=== PATIENT | male | born 1945 | race Two or more races ===

== ENCOUNTER 2024-09-03 06:41 | Day surgery (SDC) | payer OTHER ==
[2024-08-20 11:21] VITALS: BP 149/85
[2024-08-20 11:35] LABS: URINE APPEARANCE Clear; URINE BILIRRUBIN Negative (NEGATIVE); URINE BLOOD Negative; URINE COLOR Yellow; URINE GLUCOSE Negative (NEGATIVE); URINE KETONE Negative (NEGATIVE); URINE LEUKOCYTE Negative; URINE NITRATE Negative; URINE PROTEIN Negative (NEGATIVE)
[2024-08-20 11:39] LABS: URINE BACTERIA 9.7 uL (0.0-1933); URINE EPITHELIAL CELLS 3.6 uL (0.0-38.8); URINE RBC 9.1 uL (0.0-20.8); URINE WBC 9.7 uL (0.0-23.2)
[2024-08-20 11:56] LABS: HEMATOCRIT 36.5 % (39.0-48.0); HEMOGLOBIN 12.4 g/dL (13-16.00); MEAN CELL VOLUME 90.5 fL (80.0-100.00); MEAN CORPUSCULAR HEMOGLOBIN 30.8 pg (27.00-32.0); PLATELET COUNT 184 K/uL (150-450); RED BLOOD COUNT 4.03 M/uL (4.00-6.00); RED CELL DISTRIBUTION WIDTH 13.3 % (11.5-14.5)
[2024-08-20 12:13] LABS: INR 1.04; PARTIAL THROMBOPLASTIN TIME 27.1 SECONDS (22.0-34.0); PROTHROMBIN TIME 11.3 SECONDS (9.0-11.5)
[2024-08-20 12:21] LABS: URINE CAST 0.14 uL (0.0-1.40)
[2024-08-20 12:28] LABS: ALBUMIN 4.2 gm/dL (3.4-5.0); CALCIUM 9.4 mg/dL (8.5-10.1); CREATININE SERUM 0.93 mg/dL (0.70-1.30); GFR 78.18; PHOSPHOROUS 2.7 mg/dL (2.5-4.9); POTASSIUM 4.46 mEq/L (3.5-5.1)
[~2024-09-03] VITALS: Ht 157.5 cm; Wt 72.6 kg
[~2024-09-03 06:41] MED LIST: LIPOFEN150 MG; METFORMIN HCL500 M3 PO; OXYBUTYNIN CHLO10 MG PO; PROVASTATIN; TAMS0.4C PO; VASOTEC20 M1 PO
[2024-09-03] MEDS ORDERED: CEFAZOLIN SODIUM 1,000 MG VIAL ONE (07:30)
[2024-09-03] MEDS ORDERED: EPINEPHRINE HCL/PF 1 MG/ML AMPUL ONE (08:02)
[2024-09-03] MEDS ORDERED: LIDOCAINE HCL 1%/EPINEPHRINE 20ML VIAL IJ ONE (08:03)
[2024-09-03] MEDS ORDERED: POVIDONE-IODINE 118 ML BOTT TOP ONE (09:30)
[2024-09-03] MEDS ORDERED: CIPROFLOXACIN2.5 ML OTIC (09:59)
== END 2024-09-03 12:10 | disposition home or self-care (01) ==
LOC: CIR.AMB 06:41
PROVIDERS: ATTEND Otolaryngology Otology & Neurotology
DX: H60.42 Cholesteatoma of left external ear (principal); H61.312 Acquired stenosis of left external ear canal secondary to trauma; S01.312A Laceration without foreign body of left ear, initial encounter